=== PATIENT | male | born 1995 | race Caucasian/White ===

== ENCOUNTER 2017-07-02 09:27 | Emergency (ER) | payer OTHER ==
[~2017-07-02] VITALS: Ht 170.2 cm; Wt 81.0 kg
[2017-07-02 10:59] LABS: HEMOGLOBIN 15.7 g/dL (13.7-18.0)
[2017-07-02] MEDS ORDERED: ONDANSETRON 2MG/ML, 2ML IVP ONE (11:00)
[2017-07-02] MEDS ORDERED: SODIUM CHLORIDE 0.9% 1,000ML IVBOLUS ONE ×2 (11:00→13:00)
[2017-07-02] MEDS ORDERED: HYDROmorphone 1 MG/ML, 1ML IV PRN (11:00)
[2017-07-02] MEDS ORDERED: SODIUM CHLORIDE FLUSH 10ML SYR IVF ONE (11:00)
[2017-07-02] MEDS ORDERED: ONDANSETRON 2MG/ML, 2ML ONE (11:02)
[2017-07-02] MEDS ORDERED: HYDROmorphone 1 MG/ML, 1ML ONE (11:02)
[2017-07-02 11:13] LABS: ASPARTATE AMINO TRANSFERASE 12 U/L (15-37); BLOOD UREA NITROGEN 11 mg/dL (7-18)
[2017-07-02] MEDS ORDERED: CEFTRIAXONE PMX 1GM/50ML 50 ML IVPB ONE (13:00)
[2017-07-02] MEDS ORDERED: KETOROLAC 30 MG/1 ML ONE (13:48)
[2017-07-02] MEDS ORDERED: KETOROLAC 30 MG/1 ML IVPush ONE (14:00)
[2017-07-02 14:23] LABS: RAPID INFLUENZA A Negative (Negative); RAPID INFLUENZA B Negative (Negative)
[2017-07-02 14:49] VITALS: BP 123/63
== END 2017-07-02 14:50 | disposition home or self-care (01) ==
LOC: ED 10:49
DX: J20.9 Acute bronchitis, unspecified (principal); D72.829 Elevated white blood cell count, unspecified; J45.909 Unspecified asthma, uncomplicated
CPT/HCPCS: 36415; 71010; 80053; 83605; 84145; 85025; 85379; 86308; 87040; 87400; 93005; 96361; 96365; 96375; 99285; J0696; J1170; J1885; J2405; J7030

== ENCOUNTER → 2017-09-20 | Outpatient (CLI) | payer OTHER | END | disposition home or self-care (01) | LOC: RAD 15:20 | PROVIDERS: ATTEND Physician Assistant | DX: S53.021A Posterior subluxation of right radial head, initial encounter (principal); Q68.8 Other specified congenital musculoskeletal deformities; X58.XXXA Exposure to other specified factors, initial encounter; Y93.89 Activity, other specified; Y92.89 Other specified places as the place of occurrence of the external cause; Y99.8 Other external cause status ==